=== PATIENT | male | born 1960 | race Caucasian/White ===

== ENCOUNTER 2024-06-16 18:06 | Observation (INO) | payer OTHER, MEDICARE, SELFPAY ==
[2024-06-16 18:09] VITALS: BP 147/82; PULSE 94; RESP 15; O2SAT 95
[2024-06-16 18:13] VITALS: BP 147/82; PULSE 94; RESP 15; O2SAT 95
[2024-06-16 18:46] LABS: Abs Immature Grans 0.03 10^3/uL (0.0-0.06); Absolute Basophil Count 0.05 10^3/uL (0.0-0.2); Absolute Monocyte Count 1.15 10^3/uL (0.1-0.8); Absolute Neutrophil Count 7.85 10^3/uL (1.2-6.7); Basophils % 0.4 %; Eosinophils % 4.4 %; HCT 44.1 % (40.0-50.0); HGB 14.9 g/dL (13.5-17.5); Immature Grans % 0.3 %; Lymphocytes % 15.8 %; MCHC 33.8 % (32.0-36.0); MCV 86 fL (80-95); MPV 8.8 fL (8.0-11.0); Monocytes % 10.1 %; Platelet Count 295 10^3/uL (130-400); RBC 5.14 10^6/uL (4.36-5.78); RDW 12.7 % (11.8-14.1); RDW-SD 39.8 fL; WBC 11.38 10^3/uL (4.4-10.8)
[2024-06-16 18:47] LABS: Bilirubin Negative (Negative); Blood Negative (Negative); Clarity Clear (Clear); Glucose Negative (Negative); Ketones Negative (Negative); Leukocyte Esterase Negative (Negative); Nitrite Negative (Negative); pH 6.5 (5-8)
[2024-06-16 18:57] VITALS: BP 141/76; PULSE 79; RESP 16; TEMP 37.2; O2SAT 96
[2024-06-16 18:58] LABS: ALT 34 U/L (16-63); AST 22 U/L (15-37); Albumin 3.6 g/dL (3.4-5.0); Alkaline Phosphatase 108 U/L (46-116); Anion Gap 9.5 mmol/L (3-11); BUN 16 mg/dL (7-18); Bilirubin, Total 1.28 mg/dL (0.2-1.0); CO2 26.5 mmol/L (21.0-32.0); CREATININE 1.2 mg/dL (0.70-1.30); Chloride 103 mmol/L (98-107); Estimated GFR 67.95 (mL/min/1.73m2); Glucose 99 mg/dL (74-106); Lipase 26 U/L (16-77); Potassium 3.9 mmol/L (3.5-5.1); Sodium 139 mmol/L (136-145); Total Protein 7.7 g/dL (6.4-8.2)
[2024-06-16] MEDS: ACETAMINOPHEN 1,000 MG/100 ML BAG 400 MG IVPB (19:02)
[2024-06-16 19:03] LABS: Calcium 9.4 mg/dL (8.5-10.1)
--- NOTE | 2024-06-16 19:15 | RT.EKG_ITS ---
APPROVED REPORT Exam: Resting ECG Reason for Exam: epigastric pain Patient Location: E HR:79 bpm ECG Measurements Heart Rate 79 AXIS DC 155 P 34 QRSd 90 QRS -15 QT 349 T 45 QTc 401 Conclusion Sinus rhythm, rate 79 No interval abnormalities No STEMI
--- NOTE | 2024-06-16 19:22 | W.PM.HP.N ---
Date of service: 06/16/24 Time of Service: 19:22 Assessment and Plan Assessment and plan (1) Acute cholecystitis: Status: Acute Assessment and plan: Erik and I reviewed the natural history of gallstones, and acute cholecystitis. Although he only has a mild white blood cell count and low-grade temperature, he is quite tender over the gallbladder, and the CT scan is also very concerning. There is a significant amount of gallbladder wall thickening and inflammation in the pericholecystic fat. I explained to Erik that I think it is very reasonable to attempt a laparoscopic cholecystectomy, however given the timing of his symptoms, and the appearance of the gallbladder on the CT scan, there is a higher than average chance that with this will require open cholecystectomy if any of the anatomy is significantly distorted by the inflammation. Reviewed the nature of the operation, and the risks and the benefits, and what to expect in terms of the recovery. I think Erik has a very good understanding of all of this, and he is able to provide informed consent. He like to move forward with cholecystectomy as soon as possible. History of Present Illness History of Present Illness Chief Complaint: abdominal pain Narrative: Erik is 63 years old. He noticed the acute onset of right-sided back pain on Friday. At first, he thought this may be a kidney stone, which she has experienced in the past. Pain increased in intensity through Friday, and migrated towards his right upper quadrant. Called his primary care physician, who ordered a CT scan. PET scan demonstrated gallbladder wall thickening and pericholecystic fluid consistent with acute cholecystitis. Primary care physician referred him to the emergency department. He came to [facility] where he was found of a leukocytosis, and mild elevation of his total bilirubin. He has a white blood cell count around 11,000. Past medical history significant chronic lower back pain which has been treated with a spinal stimulator. Has had a favorable response to that. He is also had nephrolithiasis as mentioned above. He takes omeprazole for gastroesophageal reflux disease. Review of Systems Constitutional Constitutional: Denies fever(s) and Reports poor appetite Eyes Eyes: Reports system reviewed and no additional complaints, except as documented ENT Ears, Nose, Mouth, and Throat: Reports system reviewed and no additional complaints, except as documented Cardiovascular Cardiovascular: Reports as per HPI and Denies dyspnea Respiratory Respiratory: Denies chest congestion, Denies cough and Denies dyspnea Gastrointestinal Gastrointestinal: Reports abdominal pain and Reports nausea Genitourinary Genitourinary: Reports system reviewed and no additional complaints, except as documented Musculoskeletal Musculoskeletal: Reports back pain Hematologic/Lymphatic Hematologic/Lymphatic: Denies easy bleeding and Denies easy bruising PFSH All Active Problems (Updated 06/16/24 @ 20:43 by ANDRE Harkins) Cholelithiasis (Acute) Acute cholecystitis (Acute) Social History Smoking risk assessment performed?: No Meds Allergies and Home Medications Allergies Allergy/AdvReac Type Severity Reaction Status Date / Time Penicillins Allergy Mild Other (See Verified 06/16/24 18:15 Comment) Home Medications ?Medication ?Instructions ?Recorded ?Confirmed ?Type fluticasone 100 mcg-salmeterol 50 1 inh inhalation DAILY 06/16/24 06/16/24 History mcg/dose blistr powdr for inhalation (Advair Diskus) gabapentin 800 mg tablet 800 mg PO 4XD 06/16/24 06/16/24 History omeprazole magnesium 20 mg 20 mg PO DAILY 06/16/24 06/16/24 History tablet,delayed release (Prilosec OTC) Exam Const General: cooperative, comfortable and no acute distress Nutritional Appearance: overweight Orientation: alert, awake and oriented x3 HENMT Head: normal to inspection Eyes General: appearance normal, both eyes and all related structures Neck Neck: normal visual inspection, full ROM and no lymphadenopathy Resp Effort & Inspection: normal respiratory effort and able to speak in complete sentences Auscultation: clear to auscultation bilaterally Cardio Jugular venous pressure: no JVD Rate: regular rate Rhythm: regular rhythm Heart Sounds: S1 normal and S2 normal GI Palpation: soft, guarding in the RUQ, no hernias and tender in the RUQ Auscultation: hypoactive bowel sounds Skin General skin exam: no rashes or lesions noted Neuro General: patient alert, patient awake and patient oriented x3 Extrem General: no cyanosis and no edema Psych Appearance: grossly normal Results Labs 06/16/24 18:36 06/16/24 18:36 Labs: Laboratory Results - last 24 hr 06/16/24 06/16/24 18:21 18:36 WBC 11.38 H RBC 5.14 Hgb 14.9 Hct 44.1 MCV 86 MCH 29.0 MCHC 33.8 RDW 12.7 Plt Count 295 MPV 8.8 Immature Gran % 0.3 Neutrophils % 69.0 Lymphocytes % 15.8 Monocytes % 10.1 Eosinophils % 4.4 Basophils % 0.4 Nucleated RBC % 0.0 Absolute Neutrophils 7.85 H Absolute Lymphocytes 1.80 Absolute Monocytes 1.15 H Absolute Eosinophils 0.50 Absolute Basophils 0.05 Sodium 139 Potassium 3.9 Chloride 103 Carbon Dioxide 26.5 Anion Gap 9.5 BUN 16 Creatinine 1.2 Est GFR (CKD-EPI 2020) 67.95 Glucose 99 Calcium 9.4 Total Bilirubin 1.28 H AST 22 ALT 34 Alkaline Phosphatase 108 Total Protein 7.7 Albumin 3.6 Lipase 26 Urine Color Yellow Urine Clarity Clear Urine pH 6.5 Ur Specific [place] 1.010 Urine Protein Negative Urine Ketones Negative Urine Blood Negative Urine Nitrite Negative Urine Bilirubin Negative Urine Urobilinogen 1.0 H Ur Leukocyte Esterase Negative Urine Glucose Negative Last Vital Signs Temp 99.0 F 06/16/24 18:57 Pulse 79 06/16/24 18:57 Resp 16 06/16/24 18:57 BP 141/76 H 06/16/24 18:57 Pulse Ox 96 06/16/24 18:57 Time Spent Time spent with Patient: 55-74 minutes Time was spent: preparing to see the patient(eg.review tests), obtaining and/or reviewing separately otained hiistory, indepentently interpreting results, counseling the patient and care coordination
[2024-06-16 19:34] VITALS: BP 151/78; PULSE 76; RESP 16; TEMP 36.9; O2SAT 95
--- NOTE | 2024-06-16 20:26 | W.ED.GENAD ---
Discharge Plan Disposition Patient Disposition: Admit to [facility] Condition: Serious Discharge Details Clinical Impression: Acute cholecystitis, Cholelithiasis Primary Care Provider: Unknown,Unknown ED Provider: Paulina Brooks Home Meds and New Rx's Prescriptions: No Action gabapentin 800 mg tablet 800 mg PO 4XD fluticasone propion-salmeterol [Advair Diskus] 100-50 mcg/dose blister with device 1 inh inhalation DAILY omeprazole magnesium [Prilosec OTC] 20 mg tablet,delayed release (DR/EC) 20 mg PO DAILY HPI General Date/Time Provider Initiated Documentation: 06/16/24 18:07. HPI Narrative: This 63-year-old male with history of asthma and neuropathy presents with report of acute cholecystitis from his primary care's office. He had outpatient CT abdomen and pelvis and diagnostic labs performed and they were concerning for acute cholecystitis. As patient has had persistent right upper quadrant pain for the past 3 days he presents for assessment. He had his imaging and blood work performed at [facility]. Denies any fever or chills. Has had some intermittent nausea and vomiting. Denies any diarrhea. Denies any history of alcohol or tobacco use. Related Data Home Medications ?Medication ?Instructions ?Recorded ?Confirmed fluticasone 100 mcg-salmeterol 50 1 inh inhalation DAILY 06/16/24 06/16/24 mcg/dose blistr powdr for inhalation (Advair Diskus) gabapentin 800 mg tablet 800 mg PO 4XD 06/16/24 06/16/24 omeprazole magnesium 20 mg 20 mg PO DAILY 06/16/24 06/16/24 tablet,delayed release (Prilosec OTC) Allergies Allergy/AdvReac Type Severity Reaction Status Date / Time Penicillins Allergy Mild Other (See Verified 06/16/24 18:15 Comment) General Stated Complaint: Abd Prob NOBLE: 3 Exam Narrative Exam Narrative: Alert and oriented 63-year-old gentleman in no acute distress, guarding to right upper quadrant, no rebound tenderness, lungs clear to auscultation, cardiac rate rhythm regular, no abdominal bruit or pulsatile mass, no CVA tenderness, distal pulses intact, alert and oriented x 4 Course Vital Signs Vital signs: Vital Signs Pulse 94 H 06/16/24 18:09 Respiratory Rate 15 06/16/24 18:09 Blood Pressure 147/82 H 06/16/24 18:09 Pulse Oximetry 95 06/16/24 18:09 Temperature 36.9 C 06/16/24 19:34 Temperature Source Oral 06/16/24 19:34 Pulse 76 06/16/24 19:34 Respiratory Rate 16 06/16/24 19:34 Respiratory Effort Normal 06/16/24 19:34 Respiratory Depth Normal 06/16/24 19:34 Respiratory Pattern Normal 06/16/24 19:34 Blood Pressure 151/78 H 06/16/24 19:34 Blood Pressure Mean 102 06/16/24 19:34 Blood Pressure Position Supine 06/16/24 19:34 Pulse Oximetry 95 06/16/24 19:34 Oxygen Delivery Method Room Air 06/16/24 19:34 Oxygen Flow Rate 0 06/16/24 19:34 Pain Level 2 06/16/24 19:34 Lab/Test Results Lab/Test Results: Laboratory Tests Range/Units 06/16/24 06/16/24 18:21 18:36 WBC (4.4-10.8) 10^3/uL 11.38 H RBC (4.36-5.78) 10^6/uL 5.14 Hgb (13.5-17.5) g/dL 14.9 Hct (40.0-50.0) % 44.1 MCV (80-95) fL 86 MCH (27.0-33.0) pg 29.0 MCHC (32.0-36.0) % 33.8 RDW (11.8-14.1) % 12.7 Plt Count (130-400) 10^3/uL 295 MPV (8.0-11.0) fL 8.8 Immature Gran % % 0.3 Neutrophils % % 69.0 Lymphocytes % % 15.8 Monocytes % % 10.1 Eosinophils % % 4.4 Basophils % % 0.4 Nucleated RBC % (0.0-0.3) % 0.0 Absolute Neutrophils (1.2-6.7) 10^3/uL 7.85 H Absolute Lymphocytes (1.2-3.4) 10^3/uL 1.80 Absolute Monocytes (0.1-0.8) 10^3/uL 1.15 H Absolute Eosinophils (0.0-0.7) 10^3/uL 0.50 Absolute Basophils (0.0-0.2) 10^3/uL 0.05 Sodium (136-145) mmol/L 139 Potassium (3.5-5.1) mmol/L 3.9 Chloride (98-107) mmol/L 103 Carbon Dioxide (21.0-32.0) mmol/L 26.5 Anion Gap (3-11) mmol/L 9.5 BUN (7-18) mg/dL 16 Creatinine (0.70-1.30) mg/dL 1.2 Est GFR (CKD-EPI 2020) (mL/min/1.73m2) 67.95 Glucose (74-106) mg/dL 99 Calcium (8.5-10.1) mg/dL 9.4 Total Bilirubin (0.2-1.0) mg/dL 1.28 H AST (15-37) U/L 22 ALT (16-63) U/L 34 Alkaline Phosphatase (46-116) U/L 108 Total Protein (6.4-8.2) g/dL 7.7 Albumin (3.4-5.0) g/dL 3.6 Lipase (16-77) U/L 26 Urine Color (Yellow) Yellow Urine Clarity (Clear) Clear Urine pH (5-8) 6.5 Ur Specific [place] (1.005-1.025) 1.010 Urine Protein (Neg-Trace) mg/dL Negative Urine Ketones (Negative) mg/dL Negative Urine Blood (Negative) Negative Urine Nitrite (Negative) Negative Urine Bilirubin (Negative) Negative Urine Urobilinogen (Up to 0.2) mg/dL 1.0 H Ur Leukocyte Esterase (Negative) Negative Urine Glucose (Negative) mg/dL Negative Medical Decision Making 62-year-old male presenting with right upper quadrant pain and report of acute cholecystitis based on the CT performed at [facility] earlier today. Patient's exam is consistent with acute cholecystitis, no significant leukocytosis 11,000, LFTs and lipase within normal limits. Approximately 10 minutes of time was spent logging into [facility] to review CT imaging and diagnostic lab imaging. nontoxic in appearance. Case discussed with Dr. Natarajan after reviewing CT report from [facility]. Patient given Zosyn and will be admitted to our facility. Dr. Natarajan after evaluating the patient has decided to take him to the operating room tonight. Patient remains with stable vitals and assessment throughout his stay in the emergency department. Will transition care to Dr. Natarajan at this time 20:00. Quality:SDOH Health Related Social Needs: No Data to Display PFSH All Active Problems (Updated 06/16/24 @ 20:43 by ANDRE Harkins) Cholelithiasis (Acute) Acute cholecystitis (Acute) Social History Smoking risk assessment performed?: No
[2024-06-16 20:40] VITALS: BP 146/87; PULSE 77; RESP 14; TEMP 37; O2SAT 95
--- NOTE | 2024-06-16 21:06 | ANES.PREOP_ITS ---
General Info Date of Service Date Performed: 06/16/24 Height: 6 ft 1 in Weight: 123.831 kg Body Mass Index (BMI): 36.0 Meds Allergies and Home Medications Allergies Allergy/AdvReac Type Severity Reaction Status Date / Time Penicillins Allergy Mild Other (See Verified 06/16/24 18:15 Comment) Home Medication ?Medication ?Instructions ?Recorded fluticasone 100 mcg-salmeterol 50 1 inh inhalation DAILY 06/16/24 mcg/dose blistr powdr for inhalation (Advair Diskus) gabapentin 800 mg tablet 800 mg PO 4XD 06/16/24 omeprazole magnesium 20 mg 20 mg PO DAILY 06/16/24 tablet,delayed release (Prilosec OTC) Current Visit Medications: Current Medications Generic Name Dose Route Start Last Admin Trade Name Freq PRN Reason Stop Dose Admin Indocyanine Green 5 mg 06/16/24 21:00 Indocyanine Green 25 Mg Vial IVP DIRECTED [facility] Active Problems Active Problems: Problem Status Onset Code Cholelithiasis Acute K80.20 Acute cholecystitis Acute K81.0 Vital Signs and Lab Results Vital Signs Most Recent Vital Signs in EMR: Most Recent Vital Signs Temp Pulse Resp BP Pulse Ox 37.0 C 77 14 146/87 H 95 06/16/24 20:40 06/16/24 20:40 06/16/24 20:40 06/16/24 20:40 06/16/24 20:40 Lab Results 06/16/24 18:36 06/16/24 18:36 Blood Type / Crossmatch: 2 No Data to Display Complete Blood Count: 2 White Blood Count 11.38 10^3/uL (4.4-10.8) H 06/16/24 18:36 Red Blood Count 5.14 10^6/uL (4.36-5.78) 06/16/24 18:36 Hemoglobin 14.9 g/dL (13.5-17.5) 06/16/24 18:36 Hematocrit 44.1 % (40.0-50.0) 06/16/24 18:36 Platelet Count 295 10^3/uL (130-400) 06/16/24 18:36 Complete Metabolic Panel: 2 Sodium 139 mmol/L (136-145) 06/16/24 18:36 Potassium 3.9 mmol/L (3.5-5.1) 06/16/24 18:36 Chloride 103 mmol/L (98-107) 06/16/24 18:36 Carbon Dioxide 26.5 mmol/L (21.0-32.0) 06/16/24 18:36 BUN 16 mg/dL (7-18) 06/16/24 18:36 Creatinine 1.2 mg/dL (0.70-1.30) 06/16/24 18:36 Est GFR (CKD-EPI 2020) 67.95 (mL/min/1.73m2) 06/16/24 18:36 Calcium 9.4 mg/dL (8.5-10.1) 06/16/24 18:36 Albumin 3.6 g/dL (3.4-5.0) 06/16/24 18:36 Glucose 99 mg/dL (74-106) 06/16/24 18:36 Liver Function Panel: 2 Alanine Aminotransferase (ALT/SGPT) 34 U/L (16-63) 06/16/24 18: 36 Aspartate Amino Transf (AST/SGOT) 22 U/L (15-37) 06/16/24 18:36 Coagulation Panel: 2 No Data to Display Cardiac Panel: 2 No Data to Display Arterial Blood Gas: 2 No Data to Display Venous Blood Gas: 2 No Data to Display Pancreas Panel: 2 Lipase 26 U/L (16-77) 06/16/24 18:36 Thyroid Panel: 2 No Data to Display Infectious Disease: 2 No Data to Display Blood Cultures: 2 No Data to Display Toxicology Panel: 2 No Data to Display Anesthesia Assessment and Plan Anesthesia History Personal History: No History of Anesthesia Complications Family History: No Family History of Anesthesia Complications Exercise Tolerance Exercise Tolerance: Metabolic Equivalents>4 Cardiac & Pulmonary Exam Cardiac Exam: Normal S1/S2 Heart Sounds Pulmonary Exam: Clear Bilateral Breath Sounds Implantable Cardiac Device Does patient have a Pacemaker or an ICD?: No Airway Exam Known Difficult Airway: No Mallampati Class: 3 Mouth Opening: Normal (> 3cm) Thyromental Distance: Greater than 3 cm Neck Range of Motion: Full ROM Neck Circumference: Thick Teeth Condition: Normal Dentition ASA Classification ASA Score: ASA 2 Emergency Case?: Yes NPO Status NPO Status: NPO Small Non-Fatty Meal >6 hours (hasn't been keeping food down, had a small bite of a sandwich, but threw it up. ) Anesthesia Plan Resuscitation Status: Full Code Anesthesia Technique: General Anesthesia Airway Planned: Endotracheal Tube Monitors Used: Standard Monitors Preoperative Comments:: 63 yo male for lap kishan due to acute cholecystitis. In the ER currently has received acetaminophen. Sig PMHx: asthma (Advair. rare rescue use), GERD (omeprazole), neuropathy (gabapentin). previous UPPP, spinal cord stimulator placed ~t4 level, and multiple spinal surgeries in the past. Discussed GA with rescue regional anesthesia.
[2024-06-16 21:10] VITALS: BMI 36.0
[2024-06-16] MEDS: Lactated Ringers 500 ML 30 ML IV (21:52)
[2024-06-16] MEDS: ceFAZolin 2 GM/50 ML BAG 100 GM (21:52)
[2024-06-16] MEDS: Indocyanine green 25 MG VIAL (21:53)
[2024-06-16] MEDS: Bupivacaine 0.25% Pres-Free W/EPI 30 ML VIAL (22:29)
--- NOTE | 2024-06-16 23:00 | GB_PTH ---
PATIENT: Erik Garcia JR LOC: U#:[id number] AGE/SX: 63/M ROOM: [facility] RE06/17/[address]: Jero Natarajan MD : [id number] BED: A DIS: 06/18/2024 SPEC #: [id number] RECD: 06/17/24 12:50 STATUS: ALIX REQ #: [id number] ELLA: 06/16/24 23:[address]: Jero Natarajan DEPT: Surgical Specimen RECD BY: Paulina Thornton ENTERED: 06/17/24 12:50 SP TYPE: GB OTHR DR: No Local Tissues: 1 - GALLBLADDER Procedures: GROSS AND MICRO LEVEL 3 Comments: [id number]
[2024-06-16] MEDS: Bupivacaine LIPOSOME/PF 133 MG/10 ML VIAL IJ (23:32)
--- NOTE | 2024-06-16 23:48 | W.PM.OP ---
Date of service: 06/16/24 Time of Service: 23:48 Operative Note Operative Note DATE OF PROCEDURE: 06/16/24 PRE-OP DIAGNOSIS: Acute cholecystitis POST-OP DIAGNOSIS: same PROCEDURE: Open cholecystectomy SURGEON: Jero Natarajan LINUX SECURITY ADMINISTRATOR: Russ Galeano ANESTHESIA TYPE: Local By Surgeon and General LMA/ETT Refer to Anesthesia Record ESTIMATED BLOOD LOSS: 150 PATHOLOGY: other (Gallbladder) COMPLICATIONS: None Patient was transported to: PACU Patient's condition: stable Indications: Erik is a 63-year-old male with approximately 3 days of increasing abdominal pain. He underwent a CT scan that demonstrated acute cholecystitis. Findings: Acute gangrenous cholecystitis Procedure Description: Erik was brought into the operating room, and assisted over onto the OR table. Care was taken to make sure that he was padded and supported appropriately. General endotracheal anesthesia was induced. Next, I prepped and draped the anterior abdominal wall. I anesthetized the area around the umbilicus, made a longitudinal incision along the top side of the umbilical fold. I dissected down to the fascia which was grasped with Rabia clamps, and divided sharply in between. The peritoneal cavity was entered under direct vision. A 12 mm port was affixed to the fascia. The peritoneum was then insufflated. A 5 mm 30 degree scope was inserted. Patient was placed in some reverse Trendelenburg positioning with the left side down. A 5 mm port was placed in the right anterior abdominal wall, followed by another 5 mm port in the right midabdomen, and finally another 5 mm port in the mid epigastric site. With the assistance of indocyanine green, we began exposing the gallbladder dome. Gallbladder was quite dilated, and impossible to grasp. A needle was used to aspirate and drain dark green bile from the gallbladder. Once the dome was decompressed, with little more pliable and graspable. It was retracted up towards the head. This exposed some of the gallbladder body. There was some adhesions of the greater omentum up onto the gallbladder wall which were dissected free. The gallbladder wall was extremely thick, and the true planes of the gallbladder were really quite challenging to identify. Furthermore, there was a massive stone towards the gallbladder infundibulum which made grasping and retraction of this area almost impossible. In light of the challenges identifying the anatomy, and the severe inflammation of the gallbladder, at this point I felt the safest option was to transition over to an open cholecystectomy with a dome down approach. Therefore, the port in the right mid abdomen was removed, as was the umbilical port. 2 remaining ports in the mid epigastrium and right lateral sidewall were connected with a single subcostal incision. Once this was complete, a Bookwalter self-retaining retractor system was used for adequate exposure. The dome of the gallbladder was grasped with Josefa clamp, and using electrocautery, I began the attachment from the gallbladder fossa. Once I began dissecting the plane of the posterior gallbladder wall into the fossa, it became clear that there were multiple areas of patchy necrosis of the gallbladder wall. Staying posterior and lateral on the gallbladder, I dissected down past the gallbladder body towards the infundibulum. I was able to milk the stone in the cystic neck up into the gallbladder proper which gave me better exposure of the cystic neck as it tapers towards the cystic duct. In order to stay well away from the common bile duct, a large right angle clamp was then placed across the cystic neck encompassing the area of the cystic artery as well. The gallbladder was then divided from the cystic neck with Metzenbaum scissors. There was quite a bit of inflammation and thickened tissue around this area, and I suspect the true cystic artery was mostly obliterated and the inflammation. The cystic stump was suture-ligated with 2-0 silk suture. The surgical site was irrigated. There was minimal bleeding from the gallbladder fossa which was easily controlled with cautery. At that point, everything appeared hemostatic. Retraction sponges were removed, the surgical bed was irrigated until the effluent ran clear. Given the fact that there was quite a bit of patchy necrosis along the posterior wall the gallbladder and the adjacent gallbladder fossa and liver bed, I felt leaving a drain in place would be a safe maneuver. Therefore, I delivered a [address] drain through the remaining mid abdominal 5 mm port site. It was placed up in the gallbladder fossa adjacent to the cystic stump. Next, I created a small omental pedicle flap off of the adjacent transverse colon. This was mobilized up into the gallbladder fossa as well. The surgical drain was cut to length and affixed to the skin. I then closed the posterior fascia along the length of the incision using 2-0 PDS suture. The muscular layers were irrigated. Length of the incision was anesthetized using local anesthetic mixed with Exparel. Next, the anterior fascial sheath was reapproximated with 2-0 PDS suture as well. Again, the field was irrigated, and the deep soft tissue was reapproximated with interrupted 2-0 Vicryl stitches. The deep skin layer was also reapproximated with 2-0 Vicryl's. 4-0 Monocryl suture was then used to close the entire length of the incision. I then turned my attention to the remaining umbilical port site. This was closed with interrupted 0 Vicryl stitches at the fascial layer, and a 4-0 Monocryl suture for the skin. A ann negative pressure wound therapy device was then used to dress the subcostal incision, and a bandage was placed over the umbilical port site. The patient was then awoken from the anesthetic, extubated, and transferred to the recovery unit.
[2024-06-17] VITALS (15 sets, daily range): BP systolic 99–150; BP diastolic 59–102; PULSE 56–67; RESP 11–18; TEMP 36.2–36.6; O2SAT 92–100
[2024-06-17] MEDS: fentaNYL 100 MCG/2 ML VIAL IVP ×2 (00:28→00:39)
[2024-06-17] MEDS: HYDROmorphone 1 MG/ML SYR IVP ×3 (01:52→07:40)
[2024-06-17] MEDS: Lactated Ringers 1,000 ML 75 ML IV ×2 (02:07→15:41)
[2024-06-17] MEDS: Ketorolac 30 MG/ML VIAL IVP ×2 (03:12→09:27)
[2024-06-17] MEDS: PIPERACILLIN/TAZO 3.375 GM in Normal Saline 50 ML IVPB ×4 (03:40→21:40)
[2024-06-17] MEDS: ACETAMINOPHEN 1,000 MG/100 ML BAG 400 MG IVPB ×3 (03:52→15:39)
[2024-06-17] MEDS: MORPHine 4 MG/ML SYR IVP (05:21)
[2024-06-17 06:30] LABS: ALT 59 U/L (16-63); AST 48 U/L (15-37); Albumin 3.5 g/dL (3.4-5.0); Alkaline Phosphatase 118 U/L (46-116); Anion Gap 10.2 mmol/L (3-11); BUN 19 mg/dL (7-18); Bilirubin, Direct 0.9 mg/dL (0.0-0.2); Bilirubin, Total 1.74 mg/dL (0.2-1.0); CO2 25.8 mmol/L (21.0-32.0); CREATININE 1.4 mg/dL (0.70-1.30); Calcium 9.3 mg/dL (8.5-10.1); Chloride 101 mmol/L (98-107); Estimated GFR 56.48 (mL/min/1.73m2); Glucose 178 mg/dL (74-106); Potassium 4.6 mmol/L (3.5-5.1); Sodium 137 mmol/L (136-145); Total Protein 7.7 g/dL (6.4-8.2)
--- NOTE | 2024-06-17 07:09 | W.ANESPOSTOP ---
Postoperative Evaluation Date, Time and Location Date Performed: 06/17/24 Time Performed: 00:30 Patient Location: PACU Vital Signs Most Recent Imported Vital Signs: Most Recent Vital Signs Temp Pulse Resp BP Pulse Ox 36.2 C L 59 L 14 138/74 93 06/17/24 03:38 06/17/24 03:38 06/17/24 03:38 06/17/24 03:38 06/17/24 03:38 Pain Score Most Recent Pain Score: Most Recent Pain Score Pain Level 5 06/17/24 01:05 Assessment Mental Status: Awake (Alert & Oriented to Patient Baseline) Airway and Respiratory Function: Patent airway with normal (patient baseline) respiratory exam Cardiovascular Function: Hemodynamically Stable Hydration Status: Adequately Hydrated Nausea & Vomiting: No Nausea or Vomiting Pain: Pain is tolerable per patient Peripheral Nerve Block: Patient did not receive a nerve block
[2024-06-17] MEDS: Ondansetron 4 MG/2 ML VIAL IVP ×2 (07:38→11:47)
[2024-06-17] MEDS: Normal Saline Flush 10 ML SYR IVP ×4 (07:41→21:41)
[2024-06-17] MEDS: Omeprazole 20 MG CAPCR PO (07:41)
--- NOTE | 2024-06-17 07:50 | W.PM.PROGNOT ---
Date of Service Date of service: 06/17/24 Time of Service: 07:51 Assessment and Plan Assessment and plan (1) Acute cholecystitis: Status: Acute Assessment and plan: POD 0 S/p open cholecystectomy with LEYLA drain placement. Currently working towards improved pain control. Nauseous without vomiting. Encouraged activity OOB Start to take in PO soft, low fat diet LEYLA drain with serosanginous drainage STEVE dressing in place. Will continue to monitor for pain control and will slowly advance diet as tolerated. 1630 PT has been tolerated clears/ADAT He is up and walking +BM pain is controlled LEYLA- sang and no bile abx- zosyn DVT- lovnox labs in am Subjective Subjective Interval history since last seen: Patient reports that over night he has had difficulty with pain control. Coughing and movement increases his level of discomfort. He states he continues to have some nausea and is waiting for some Zofran. Exam Const General: cooperative, healthy appearing and comfortable Orientation: alert and oriented x3 Resp Effort & Inspection: normal respiratory effort, no audible wheezes and no cough GI Inspection: normal to inspection Palpation: soft, no guarding and tender in the RLQ and in the RUQ Other: LEYLA drain in place with serosanginous drainage STEVE dressing over the incison. Objective Last Vital Signs Temp 36.3 C L 06/17/24 07:19 Pulse 64 06/17/24 07:19 Resp 18 06/17/24 07:19 BP 150/86 H 06/17/24 07:19 Pulse Ox 96 06/17/24 07:19 Laboratory Results - last 24 hr 06/16/24 06/16/24 06/17/24 18:21 18:36 05:40 WBC 11.38 H RBC 5.14 Hgb 14.9 Hct 44.1 MCV 86 MCH 29.0 MCHC 33.8 RDW 12.7 Plt Count 295 MPV 8.8 Immature Gran % 0.3 Neutrophils % 69.0 Band Neutrophils % Lymphocytes % 15.8 Atypical Lymphs % Monocytes % 10.1 Eosinophils % 4.4 Basophils % 0.4 Metamyelocytes % Myelocytes % Promyelocytes % Other Cells % Nucleated RBC % 0.0 Absolute Neutrophils 7.85 H Absolute Lymphocytes 1.80 Absolute Monocytes 1.15 H Absolute Eosinophils 0.50 Absolute Basophils 0.05 RBC Morphology Polychromasia Hypochromasia Poikilocytosis Basophilic Stippling Anisocytosis Microcytosis Macrocytosis Spherocytes Tear Drop Cells Ovalocytes Stomatocytes [place] Bodies [place] Cells/Echinocytes Acanthocytes (Spur) Schistocytes Sodium 139 137 Potassium 3.9 4.6 Chloride 103 101 Carbon Dioxide 26.5 25.8 Anion Gap 9.5 10.2 BUN 16 19 H Creatinine 1.2 1.4 H Est GFR (CKD-EPI 2020) 67.95 56.48 Glucose 99 178 H Calcium 9.4 9.3 Total Bilirubin 1.28 H 1.74 H Conjugated Bilirubin 0.9 H AST 22 48 H ALT 34 59 Alkaline Phosphatase 108 118 H Total Protein 7.7 7.7 Albumin 3.6 3.5 Lipase 26 Urine Color Yellow Urine Clarity Clear Urine pH 6.5 Ur Specific [place] 1.010 Urine Protein Negative Urine Ketones Negative Urine Blood Negative Urine Nitrite Negative Urine Bilirubin Negative Urine Urobilinogen 1.0 H Ur Leukocyte Esterase Negative Urine Glucose Negative 06/17/24 Unknown WBC Cancelled RBC Cancelled Hgb Cancelled Hct Cancelled MCV Cancelled MCH Cancelled MCHC Cancelled RDW Cancelled Plt Count Cancelled MPV Cancelled Immature Gran % Cancelled Neutrophils % Cancelled Band Neutrophils % Cancelled Lymphocytes % Cancelled Atypical Lymphs % Cancelled Monocytes % Cancelled Eosinophils % Cancelled Basophils % Cancelled Metamyelocytes % Cancelled Myelocytes % Cancelled Promyelocytes % Cancelled Other Cells % Cancelled Nucleated RBC % Cancelled Absolute Neutrophils Cancelled Absolute Lymphocytes Cancelled Absolute Monocytes Cancelled Absolute Eosinophils Cancelled Absolute Basophils Cancelled RBC Morphology Cancelled Polychromasia Cancelled Hypochromasia Cancelled Poikilocytosis Cancelled Basophilic Stippling Cancelled Anisocytosis Cancelled Microcytosis Cancelled Macrocytosis Cancelled Spherocytes Cancelled Tear Drop Cells Cancelled Ovalocytes Cancelled Stomatocytes Cancelled [place] Bodies Cancelled [place] Cells/Echinocytes Cancelled Acanthocytes (Spur) Cancelled Schistocytes Cancelled Sodium Cancelled Potassium Cancelled Chloride Cancelled Carbon Dioxide Cancelled Anion Gap Cancelled BUN Cancelled Creatinine Cancelled Est GFR (CKD-EPI 2020) Cancelled Glucose Cancelled Calcium Cancelled Total Bilirubin Cancelled Conjugated Bilirubin Cancelled AST Cancelled ALT Cancelled Alkaline Phosphatase Cancelled Total Protein Cancelled Albumin Cancelled Lipase Urine Color Urine Clarity Urine pH Ur Specific [place] Urine Protein Urine Ketones Urine Blood Urine Nitrite Urine Bilirubin Urine Urobilinogen Ur Leukocyte Esterase Urine Glucose Time Spent with Patient Time Spent with Patient: <25 minutes Time was spent: preparing to see the patient(eg.review tests) and obtaining and/or reviewing separately moraima gonzalez
[2024-06-17] MEDS: Budesonide/Formoterol 80/4.5 6.9 GM 60 PUFF INH IH ×2 (08:22→21:43)
--- NOTE | 2024-06-17 08:54 | INITIAL_ITS ---
Date of service: 06/17/24 Time of Service: 08:54 Care Management Initial Assmt Initial Assessment Reason for Hospitalization: acute cholecystitis Functional Status/Living Situation Patient Presentation: Erik was sitting up in bed visiting with his when CM met with him. He was agreeable to conversation and seemed to be in good spirits. Erik had an open cholecystectomy last night. He stated that his GB was very enlarged with a massive stone. He is feeling better today but still has discomfort. Erik and his live in a single family home in [place], [place]. They have 2 sons who live locally and a daughter in [facility].Erik works for [employer] in [place], [place]. He is independent at baseline and does not receive any community services. Erik and his explained that they drove to [facility] rather than to [facility] or [facility] because they prefer this hospital. Town of Residence: [place], [place] Resides with: Spouse ( Jeff) Significant Other/Family: Out of area (sons live in [place]) Employment Status: Employed Instrumental Activities of Daily Living (ADLs): Independent Medications Medication Management: No Issues/Barriers identified Physical Functioning/Mobility Assistive Device: none Advance Directives Advance Directives: Do you have an Advance Directive: N 06/16/24 19:15 AD On File at [facility]: N 06/16/24 19:15 Date Asked 06/16/24 06/16/24 19:15 AD Date Reviewed COLST On File at [facility] COLST Date Scanned Comment: given 2 copies of [place] AD forms Code Status Resuscitation Status Full Code Portal Pt does not currently have a portal and education provided: No Insurance Coverage/Financial Issues Insurance: Medicare Care Team Visit Care Team Role Provider Type Local No Primary Care Provider NON-[facility] STAFF PHYSICIAN ANDRE Harkins Emergency Provider [facility]PRENT[facility] Jero Natarajan MD Admit Provider [facility] STAFF PHYSICIAN Attending Provider Discharge Potential Discharge Needs: Surgical F/U Appt Anticipated Barriers to Discharge: None Identified Patient/Family Education Needs: Review discharge instructions, discuss Ask Me Three Transportation: Private vehicle Plan: Anticipate Erik will be discharged home with no new services when medically stable. He will follow up with his surgeon and plan of care and transport with family. CM will follow and support discharge needs. PFSH All Active Problems (Updated 06/16/24 @ 20:43 by ANDRE Harkins) Cholelithiasis (Acute) Acute cholecystitis (Acute) Social History Smoking risk assessment performed?: No Housing: house SDOH(Care Management) Screening Will the Patient Participate in the Screening?: Yes Do you worry about having a steady place to live?: no In the past 12 months, have you had to go without electric, gas, oil or water in your home?: no Have you or anyone in your house had to go without enough food to eat?: no Has lack of transportation kept you from medical appointments or from doing things needed for daily living?: no Has anyone in your support network made you feel unsafe for any reason?: no
[2024-06-17] MEDS: Normal Saline 10 ML VIAL IJ (09:27)
[2024-06-17] MEDS: Simethicone 80 MG CHEW PO (09:32)
[2024-06-17] MEDS: Enoxaparin 40 MG/0.4 ML SYR SC (10:52)
--- NOTE | 2024-06-17 13:25 | CHAPLAIN ---
Erik was in bed when I visited. I introduced myself, explained my role and offered support. Erik was pleasant and engaged in a short conversation. He is in touch with family. He's from [place], [place]. I will continue to visit.
[2024-06-17] MEDS: Acetaminophen 500 MG TAB 1000 MG PO (21:39)
[2024-06-18] MEDS: Acetaminophen 500 MG TAB 1000 MG PO ×3 (02:46→14:38)
[2024-06-18] MEDS: PIPERACILLIN/TAZO 3.375 GM in Normal Saline 50 ML IVPB (04:17)
[2024-06-18 06:56] LABS: ALT 42 U/L (16-63); AST 27 U/L (15-37); Albumin 2.9 g/dL (3.4-5.0); Alkaline Phosphatase 94 U/L (46-116); Anion Gap 7.4 mmol/L (3-11); BUN 22 mg/dL (7-18); Bilirubin, Total 1.15 mg/dL (0.2-1.0); CO2 29.6 mmol/L (21.0-32.0); CREATININE 1.5 mg/dL (0.70-1.30); Calcium 8.7 mg/dL (8.5-10.1); Chloride 105 mmol/L (98-107); Estimated GFR 51.99 (mL/min/1.73m2); Glucose 108 mg/dL (74-106); Potassium 4.1 mmol/L (3.5-5.1); Sodium 142 mmol/L (136-145); Total Protein 7.2 g/dL (6.4-8.2)
--- NOTE | 2024-06-18 07:18 | W.PM.PROGNOT ---
Date of Service Date of service: 06/18/24 Time of Service: 07:18 Assessment and Plan Assessment and plan (1) S/P cholecystectomy: Status: Acute Assessment and plan: Erik seems to be doing much better this morning. His bilirubin is trending downward. His creatinine is still bit elevated, but he is drinking without any difficulty. Will switch him over to oral medications this morning, and I think we can probably shift IV fluids off for now. Will reassess this afternoon, and hopefully discharge this evening. Subjective Subjective Interval history since last seen: Erik is feeling much better this morning. He is only used Tylenol for pain control since yesterday. His nausea is resolved, and appetite is increased quite a bit this morning. Has not had a bowel movement yet Exam GI Other: His abdomen is soft, nondistended. He is mild incisional tenderness. LEYLA drain is serosanguineous. Objective Last Vital Signs Temp 97.7 F 06/17/24 20:44 Pulse 58 L 06/17/24 20:44 Resp 16 06/17/24 20:44 BP 125/69 06/17/24 20:44 Pulse Ox 96 06/17/24 20:44 Laboratory Results - last 24 hr 06/18/24 06:07 Sodium 142 Potassium 4.1 Chloride 105 Carbon Dioxide 29.6 Anion Gap 7.4 BUN 22 H Creatinine 1.5 H Est GFR (CKD-EPI 2020) 51.99 Glucose 108 H Calcium 8.7 Total Bilirubin 1.15 H AST 27 ALT 42 Alkaline Phosphatase 94 Total Protein 7.2 Albumin 2.9 L Time Spent with Patient Time Spent with Patient: 35-49 minutes Time was spent: preparing to see the patient(eg.review tests), indepentently interpreting results, counseling the patient and care coordination
[2024-06-18 08:09] VITALS: BP 129/79; PULSE 64; RESP 15; TEMP 37.2; O2SAT 96
[2024-06-18] MEDS: Budesonide/Formoterol 80/4.5 6.9 GM 60 PUFF INH IH (08:09)
[2024-06-18] MEDS: Omeprazole 20 MG CAPCR PO (08:13)
[2024-06-18] MEDS: Gabapentin 800 MG TAB PO ×2 (08:13→14:38)
--- NOTE | 2024-06-18 09:51 | CMDISCH_ITS ---
Date of service: 06/18/24 Time of Service: 09:51 LACE Index Scoring Tool Questions: Length of Stay (in days): 1 Was the patient admitted via the E.D.?: Yes E.D. Visits: 1 Answers: Total Score: 5 Risk of Readmission: Low Risk Care Management Discharge Plan Reason for Hospitalization: Cholecystitis Discharge Plan: Erik will be discharged home with no new services. He will follow up with his surgeon and plan of care and transport with family. SRINATH comple lloyd Advanced Directives with Erik and provided him with copies. They will be scanned into his chart and sent to the [place] AD Registry. Patient/Family Education Needs: Review discharge instructions, limitations, wound care, follow up plan, discuss Ask Me Three SDIL Health Related Social Needs: No Data to Display
[2024-06-18] MEDS: Enoxaparin 40 MG/0.4 ML SYR SC (10:27)
--- NOTE | 2024-06-18 14:20 | DSE_ITS ---
Date of service: 06/18/24 Time of Service: 14:20 DS: Diagnosis Discharge Diagnosis (1) S/P cholecystectomy: Status: Acute Asessment and Plan: Outpatient follow-up next week Discharge Plan Disposition Patient Disposition: Home Condition: Good Discharge Details Reason For Visit: gall bladder? Admit Date/Time: 06/17/24 00:15 Admit Provider: Jero Natarajan Attending Provider: Jero Natarajan Primary Care Provider: Kiarra,Local Hospital Course Hospital Course: Erik is 63 years old. He came to the emergency department with abdominal pain, and a CT scan suggesting acute cholecystitis. He had a leukocytosis and significant right upper quadrant tenderness. He underwent open cholecystectomy. Postoperative course was uncomplicated, and he was discharged home Home Meds and New Rx's Prescriptions: New tramadol 50 mg tablet 50 mg PO Q8H PRNQty: 12 0RF Rx Instructions: Take 1 tablet by mouth up to every 8 hours if needed for severe pain. Continued gabapentin 800 mg tablet 800 mg PO 4XD fluticasone propion-salmeterol [Advair Diskus] 100-50 mcg/dose blister with device 1 inh inhalation DAILY omeprazole magnesium [Prilosec OTC] 20 mg tablet,delayed release (DR/EC) 20 mg PO DAILY Discharge Instructions Instructions: Low Cholesterol, Saturated Fat, and Trans Fat Diet , Low-fat diet Additional Instructions: Erik, it was a pleasure meeting you in the hospital, and I hope you make a quick recovery from this operation. As some sure you already get the sense, you had abdominal pain that was being caused by stones in your gallbladder. You under went a surgery to remove your gallbladder known as a cholecystectomy. Although we attempted it with a camera, or laparoscopic, because of the significant amount of inflammation, we converted to an open operation to get your gallbladder out. Hopefully you will be relatively comfortable now that you are ready for discharge home. I would like you to work on increasing your activity a little more and more each day. Even if it is just walking, that is an excellent way to help stimulate recovery. The big restriction regards to heavy lifting and avoidance of vigorous activity that would increase the pressure within your abdomen. I suggest keeping her lifting accuracy expert than about a gallon of milk. And do not do any heavy raking, or exercises such as abdominal crunches or sit ups. Like we talked about before you were discharged, it is fine for you to take a shower. I would suggest waiting until Friday morning, then disconnecting the suction dressing like we talked about. You will tap the orange button to shut the pump off. The light should stop blinking green. Then untwist the connection tubing, and feel free to shower. Use warm soapy water over the incisions just below the large vacuum dressing, and the 1 at your bellybutton. Rinse everything clean, and assess the incisions once you get out of the shower. If everything is dry, and comfortable, you do not necessarily need Band-Aids on those 2 smaller incisions. If they are irritated by your clothing, or at all uncomfortable, then please feel free to put Band-Aids on them. Reattach the suction tubing to the little pump, and tapped the orange button once again. It should blink green and orange for just a minute or 2 as the vacuum reestablishes itself, then transition to steady blinking green. If at any point you notice any issues with a little vacuum pump, please let the office know I have taken the liberty of scheduling a follow-up appointment in my office on the at 9 AM. You will actually be seeing one of the physicians assistants, her name is Migdalia and she is outstanding. If I can sneak over between cases I will certainly come over to check. The most important thing is that we assess the incision and get the vacuum dressing off at that point. If you need anything over the weekend, please feel free to call the hospital direct line, then have them page the surgeon on-call, they will put you in touch with me. Hopefully you will be back to your normal self before you know it. Referrals: Ana Rasheed PA [PHYSICIANS SENIOR RISK ANALYST] - (June 25 at 9 AM) Activity:: No heavy lifting Equipment/Supplies:: No Equipment Needed Diet:: As Tolerated DS: Summary Time Spent with Patient providing and/or coordinating discharge services: Greater than 30 minutes Status at Discharge Functional status at discharge: independent ambulation Overall status at discharge: patient is back to baseline Mental Status: mental status grossly normal Speech and Movement: speech and movement normal Mood: congruent mood Affect: normal affect Quality:SDOH Health Related Social Needs: No Data to Display Exam GI Other: Abdomen is soft and nondistended. Bandages are dry. Surgical drain is removed Psych Mental Status: mental status grossly normal Speech and Movement: speech and movement normal Mood: congruent mood Affect: normal affect DS: Data Vitals/I&O Vitals and I&O: Vital Signs Temperature 99.0 F 06/18/24 08:09 Temperature Source Temporal Artery Scan 06/18/24 08:09 Pulse 64 06/18/24 08:09 Pulse Rhythm Regular 06/17/24 01:05 Respiratory Rate 15 06/18/24 08:09 Respiratory Effort Normal 06/17/24 01:05 Respiratory Depth Shallow 06/17/24 01:05 Respiratory Pattern Normal 06/17/24 01:05 Blood Pressure 129/79 06/18/24 08:09 Blood Pressure Mean 106 06/16/24 20:40 Blood Pressure Position Supine 06/16/24 20:40 Pulse Oximetry 96 06/18/24 08:09 Respiratory End-tidal CO2 43 06/17/24 00:41 Oxygen Delivery Method Room Air 06/18/24 09:41 Oxygen Flow Rate 0 06/18/24 09:41 Pain Level 1 06/18/24 09:37 Comment Assigned RN notified of elevated BP. 06/17/24 07:19 Intake & Output 06/17/24 06/18/24 06/18/24 23:59 11:59 23:59 Intake Total 1320 / 2070 1550 / 1550 Output Total 985 / 1715 1452 / 1452 Balance 335 / 355 98 / 98 Intake: IV 1300 / 2050 1050 / 1050 Oral 500 / 500 Injectate 20 / 20 Right Mid Anterior Abdomen 20 / 20 Output: Drainage 35 / 165 27 / 27 Right Mid Anterior Abdomen 35 / 165 27 / 27 Urine 950 / 950 1425 / 1425 Other: Urine Color Yellow Yellow Urine Appearance Clear Clear Urine Odor None None Stool Size Small Stool Characteristics Hard Data Completed and Pending Labs on day of discharge: Labs from last 24 hours 06/18/24 06:07 Sodium 142 Potassium 4.1 Chloride 105 Carbon Dioxide 29.6 Anion Gap 7.4 BUN 22 H Creatinine 1.5 H Est GFR (CKD-EPI 2020) 51.99 Glucose 108 H Calcium 8.7 Total Bilirubin 1.15 H AST 27 ALT 42 Alkaline Phosphatase 94 Total Protein 7.2 Albumin 2.9 L PFSH All Active Problems (Updated 06/18/24 @ 07:19 by Jero Natarajan MD) S/P cholecystectomy (Acute) Medical History (Updated 06/18/24 @ 07:19 by Jero Natarajan MD) Cholelithiasis Acute cholecystitis Social History Smoking risk assessment performed?: No Housing: house Time Spent with Patient Time Spent with Patient: <45 minutes Time was spent: preparing to see the patient(eg.review tests), ordering medications,tests, procedures, referring, communicating with other health healthcare science specialist, indepentently interpreting results and counseling the patient
== END 2024-06-18 15:21 | disposition home or self-care (01) ==
LOC: ER 20:43 → DSU 21:42 → MS 06-17 01:34
PROVIDERS: Surgery; Admitting Provider Surgery; Emergency Provider Physician Assistant; Visit Provider Surgery
PROC: 0FT44ZZ Resection of Gallbladder, Percutaneous Endoscopic Approach (ICD-10-PCS; CPT 47562; principal; 2024-06-16 21:20)
DX: K80.00 Calculus of gallbladder with acute cholecystitis without obstruction (principal); K82.A1 Gangrene of gallbladder in cholecystitis; G89.29 Other chronic pain; M54.50 Low back pain, unspecified; K21.9 Gastro-esophageal reflux disease without esophagitis; Z96.82 Presence of neurostimulator
CPT/HCPCS: 47600; 25609; 36415; 80048; 80053; 80076; 83690; 93005; 94640; 96365; 96366; 96372; 96375; 96376; 99223; 99285; J1650; 81003; 85025; 88304; 93010; 94664; C9290; G0378; J0131; J0690; J1100; J1171; J1885; J2270; J2405; J2543; J2704; J3010

== ENCOUNTER → 2024-06-25 08:51 | Outpatient (BNVA) | payer MEDICARE, SELFPAY | PROVIDERS: Visit Provider Physical Therapy Assistant | DX: Z48.817 Encounter for surgical aftercare following surgery on the skin and subcutaneous tissue (principal) ==

== ENCOUNTER 2024-06-30 12:26 | Outpatient (CLI) | payer OTHER, MEDICARE, SELFPAY ==
--- NOTE | 2024-06-30 | DI.CT_ITS ---
Exam(s) CT ABDOMEN PELVIS W EXAM: CT ABDOMEN PELVIS W CLINICAL HISTORY: R10.9 Abd pain, post operative. TECHNIQUE: Imaging Protocol: Axial computed tomography images with coronal and sagittal reformatted images were created and reviewed CONTRAST MATERIAL: Intravenous: Omnipaque 350 Contrast volume:100 ml Oral: yes COMPARISON: CT CT Abdomen and Pelvis w/ Contrast from 06/16/2024 FINDINGS: ABDOMEN and PELVIS: Lung Bases: No acute findings. Atelectasis at the lung bases. Liver: Normal density. No suspicious mass. Gallbladder and biliary tract: Status post cholecystectomy. No fluid or inflammation in the gallblad zaida fossa.. No biliary dilation. Pancreas: Normal density. No abnormal calcifications or inflammatory process. No evidence of mass. Spleen: Normal. Kidneys: Normal size, contour and axis. There are few bilateral nonobstructing renal calculi. Bilat eral simple renal cysts again noted.. No obstructive uropathy. No suspicious masses seen. Adrenal glands: No masses seen. Vasculature: Abdominal aorta non-dilated. Soft tissues: New fluid collection in the right lateral to the anterior abdominal wall musculature me asuring 3.0 x 7.5 by 8 cm. This corresponds to laparoscopic trocar site. Right posterior spinal sti mulator device. Bladder: No gross wall thickening. No calculi.No focal mass. Bowel: No obstruction. No bowel wall thickening. Appendix normal. Peritoneal cavity: No ascites. No focal collection. No mesenteric inflammatory response. Bones: Hardware in upper pelvis. Postsurgical and degenerative changes of the lumbar spine. Reproductive organs: Unremarkable. Lymph nodes: No pathologically enlarged lymph nodes. IMPRESSION:: Fluid collection noted at the right upper quadrant abdominal wall trocar site. Superim posed infection is not entirely excluded. Clinical correlation recommended. No acute intra-abdominal abnormality is seen. There is no fluid or inflammation in the gallbladder f marcos. No biliary dilatation. RADIATION DOSE DELIVERED: Total DLP DATA REPOSITORY: All CT scans at this facility are submitted to the National Radiology Data Registry (NRDR) Dose Index Registry (DIR) with the [employer] ([employer]). RADIATION OPTIMIZATION: All CT scans at this facility use at least one of these dose optimization te chniques: automated exposure control; mA and/or kV adjustment per patient size (includes targeted exa ms where dose is matched to clinical indication); or iterative reconstruction.
[2024-06-30] MEDS: Breeza Beverage 473 ML BTL PO ×3 (12:40→13:49)
[2024-06-30] MEDS: Omnipaque 350 MG/ML 50 ML BTL PO ×2 (12:41→13:49)
[2024-06-30] MEDS: Omnipaque 350 MG/ML 100 ML BTL IJ (14:13)
[2024-06-30] MEDS: Normal Saline - Diluent 50 ML VIAL IJ (14:14)
== END 2024-06-30 12:46 ==
PROVIDERS: Visit Provider Student in an Organized Health Care Education/Training Program
DX: R19.09 Other intra-abdominal and pelvic swelling, mass and lump (principal)
CPT/HCPCS: 74177; J3490; Q9967

== ENCOUNTER → 2024-07-01 14:48 | Outpatient (BNVA) | payer MEDICARE, OTHER, SELFPAY | PROVIDERS: Visit Provider Physical Therapy Assistant | DX: Z48.815 Encounter for surgical aftercare following surgery on the digestive system (principal) ==

== ENCOUNTER → 2024-07-06 07:44 | Outpatient (BNVA) | payer MEDICARE, OTHER, SELFPAY | PROVIDERS: PCP Student in an Organized Health Care Education/Training Program; Referring Provider Student in an Organized Health Care Education/Training Program; Visit Provider Surgery | DX: Z48.815 Encounter for surgical aftercare following surgery on the digestive system (principal); Z90.49 Acquired absence of other specified parts of digestive tract ==

== ENCOUNTER 2024-11-21 07:41 | Emergency (ER) | payer MEDICARE, OTHER, SELFPAY ==
[2024-11-21 07:44] VITALS: BP 145/71; PULSE 76; RESP 18; TEMP 36.6; O2SAT 97
--- NOTE | 2024-11-21 07:45 | DI.RAD_ITS ---
Exam(s) XR KNEE RT 3V AP,LAT,MALCOLM EXAM: XR KNEE RT 3V AP,LAT,MALCOLM CLINICAL HISTORY: pain s/p twisting injury. TECHNIQUE: 2D digital imaging was performed. Three views. COMPARISON: No exams were available for comparison FINDINGS: BONES: No acute fracture is present. No bony destructive lesion is seen. JOINTS: severe narrowing of the medial femoral tibial joint space. Periarticular spurring throughou t. No joint effusion is seen. SOFT TISSUE: Normal. IMPRESSION: Advanced degenerative changes. No acute abnormality. DATA REPOSITORY: RADIATION DOSE DELIVERED:
--- NOTE | 2024-11-21 07:57 | ED.GENADUL_ITS ---
Discharge Plan Disposition Patient Disposition: Home Condition: Stable Discharge Details Clinical Impression: Right knee sprain Primary Care Provider: [facility] ED Provider: Yair Franklin Home Meds and New Rx's Prescriptions: Continued gabapentin 800 mg tablet 800 mg PO 4XD fluticasone propion-salmeterol [Advair Diskus] 100-50 mcg/dose blister with device 1 inh inhalation DAILY omeprazole magnesium [Prilosec OTC] 20 mg tablet,delayed release (DR/EC) 20 mg PO DAILY Discharge Instructions Additional Instructions: Your x-ray does not show any concerning findings at this time. You can take 600 mg of ibuprofen and 1000 mg of acetaminophen every 6 hours as needed. If you are not improving within a week follow-up with your primary care provider. If you feel more ill or have severe worsening pain or new symptoms such as high fevers return to the emergency department for reevaluation HPI General Date/Time Provider Initiated Documentation: 11/21/24 07:44 . Limitations to Documentation: no limitations . Information obtained by: patient . History of Present Illness 64 year old M presents to the emergency department with the chief complaint of right knee pain, described as moderate, Quality is described as aching, and is localized to the right and lower extremity. Patient started experiencing this day(s) (1) and it has been constant. Rest improves symptom(s), Movement worsens symptoms . Patient notes no other symptoms.. Patient did receive the following treatments prior to arrival, NSAID Related Data Home Medications ?Medication ?Instructions ?Recorded ?Confirmed fluticasone 100 mcg-salmeterol 50 1 inh inhalation DAILY 06/16/24 11/21/24 mcg/dose blistr powdr for inhalation (Advair Diskus) gabapentin 800 mg tablet 800 mg PO 4XD 06/16/24 11/21/24 omeprazole magnesium 20 mg 20 mg PO DAILY 06/16/24 11/21/24 tablet,delayed release (Prilosec OTC) Allergies Allergy/AdvReac Type Severity Reaction Status Date / Time Penicillins Allergy Mild Other (See Verified 11/21/24 07:46 Comment) General Stated Complaint: Orthopedic NOBLE: 4 Review of Systems All systems reviewed & are unremarkable except as noted in HPI and below Constitutional Constitutional: Denies chills, Denies fever(s) and Denies weakness Cardiovascular Cardiovascular: Denies chest pain and Denies dyspnea Respiratory Respiratory: Denies dyspnea Gastrointestinal Gastrointestinal: Denies abdominal pain and Denies vomiting Neurologic Neurologic: Denies weakness Exam Const General: no acute distress Orientation: alert HENMT Head: normal to inspection Ears: external ears normal General nose exam: external nose normal Mouth: moist mucous membranes Eyes General: appearance normal, both eyes and all related structures Neck Neck: normal visual inspection Resp Effort & Inspection: normal respiratory effort and able to speak in complete sentences Cardio Rate: regular rate Neuro General: patient alert and patient oriented x3 Extrem General: full ROM and capillary refill normal Psych Mental Status: mental status grossly normal Course Vital Signs Vital signs: Vital Signs Temperature 36.6 C 11/21/24 07:44 Pulse 76 11/21/24 07:44 Respiratory Rate 18 11/21/24 07:44 Blood Pressure 145/71 H 11/21/24 07:44 Pulse Oximetry 97 11/21/24 07:44 Temperature 36.6 C 11/21/24 07:44 Temperature Source Tympanic 11/21/24 07:44 Pulse 76 11/21/24 07:44 Respiratory Rate 18 11/21/24 07:44 Blood Pressure 145/71 H 11/21/24 07:44 Blood Pressure Position Sitting 11/21/24 07:44 Pulse Oximetry 97 11/21/24 07:44 Oxygen Delivery Method Room Air 11/21/24 07:44 Oxygen Flow Rate 0 11/21/24 07:44 Medical Decision Making 64-year-old male comes in with right knee pain. He says he was lifting approximately 20 pound object yesterday and twisted his knee while doing so. He denies falling or other injuries. He has had lateral knee pain since so came in for evaluation. He denies any fevers, chills, chest pain, difficulty breathing. He appears well in no distress on exam. His knee is not swollen compared to the left. He has full range of motion of the knee. He has tenderness over the lateral portion of the knee without visible or palpable deformities. He has no swelling of the rest of his leg or calf tenderness, intact distal sensation and pulses. I suspect sprain, will obtain x-rays to exclude fracture close unlikely given lack of falls. X-ray my read shows no acute findings, turnaround time from virtual radiology is over an hour and he does not want a wait for official read which I feel is reasonable, I will call him if there is anything of concern. I suspect sprain, he states he has a cane to help keep weight off his knee, I advised to follow-up with his PCP if not improving within 1 to 2 weeks. Return precautions given Differential Diagnosis Differential Diagnosis: Sprain, strain, meniscus injury Quality:SDOH Health Related Social Needs: No Data to Display PFSH All Active Problems (Updated 06/19/24 @ 00:01 by MARY CARMEN HUA) Right knee sprain (Acute) S/P cholecystectomy (Acute) Medical History (Updated 11/21/24 @ 08:34 by Yair Franklin MD) Cholelithiasis Acute cholecystitis Social History Smoking/Tobacco Use Status: Never Smoking risk assessment performed?: Yes Alcohol Intake: former Drug use: Never Substance use type: does not use Housing: house Do you feel safe at home: Yes Do you feel safe in your relationship?: Yes
[2024-11-21] MEDS: Acetaminophen 500 MG TAB 1000 MG PO (08:00)
--- NOTE | 2024-11-21 08:35 | DI.VRAD_ITS ---
PROCEDURE INFORMATION: Exam: XR Right Knee Exam date and time: 11/21/2024 8:09 AM Age: 64 years old Clinical indication: Injury or trauma; Other: Pain S/P twisting injury TECHNIQUE: Imaging protocol: Radiologic exam of the right knee. Views: 3 views. COMPARISON: No relevant prior studies available. FINDINGS: Bones/joints: Moderate Tricompartmental joint space narrowing and osteophyte formation consistent with degenerative changes. Joint space narrowing most evident in the medial compartment . There is no evidence of acute fracture.There is no evidence of malalignment or dislocation. Soft tissues: Normal. IMPRESSION: 1. Moderate Tricompartmental joint space narrowing and osteophyte formation consistent with degenerative changes. Joint space narrowing most evident in the medial compartment . 2. There is no evidence of acute fracture.There is no evidence of malalignment or dislocation. Dictated and Authenticated by: Katy Can MD. Orderin Noemi Mazariegos MD
[2024-11-21 08:47] VITALS: BP 133/77; PULSE 58; RESP 18; O2SAT 95
--- NOTE | 2024-12-06 10:17 | NUR.NOTE ---
Accessed Pt chart to print discharge summary for Surg[facility]
--- NOTE | 2024-12-06 10:22 | NUR.NOTE ---
Accessed Pt chart to print discharge summary for Surg[facility]
--- NOTE | 2024-12-08 13:08 | NUR.NOTE ---
Accessed patient chart to print provider note to be faxed to [facility] for billing purposes. Nursing Note:
== END 2024-11-21 08:48 | disposition home or self-care (01) ==
PROVIDERS: Emergency Provider Emergency Medicine; PCP Student in an Organized Health Care Education/Training Program
DX: S83.91XA Sprain of unspecified site of right knee, initial encounter (principal); X50.1XXA Overexertion from prolonged static or awkward postures, initial encounter; Y93.89 Activity, other specified
CPT/HCPCS: 73562; 99283

== ENCOUNTER → 2024-12-27 09:53 | Outpatient (BNVA) | payer MEDICARE, OTHER, SELFPAY | PROVIDERS: PCP Student in an Organized Health Care Education/Training Program; Referring Provider Student in an Organized Health Care Education/Training Program; Visit Provider Student in an Organized Health Care Education/Training Program | DX: Z12.11 Encounter for screening for malignant neoplasm of colon (principal) | CPT/HCPCS: S0285 ==

== ENCOUNTER 2025-01-10 07:31 | Day surgery (SDC) | payer OTHER, SELFPAY ==
--- NOTE | 2025-01-08 18:49 | W.PM.DSUDISC ---
Date of service: 01/10/25 Discharge Plan Disposition Patient Disposition: Home Condition: Good Discharge Details Reason For Visit: Screening colonoscopy Attending Provider: Jero Natarajan Primary Care Provider: [facility] Home Meds and New Rx's Prescriptions: Continued gabapentin 800 mg tablet 800 mg PO 4XD fluticasone propion-salmeterol [Advair Diskus] 100-50 mcg/dose blister with device 1 inh inhalation DAILY omeprazole magnesium [Prilosec OTC] 20 mg tablet,delayed release (DR/EC) 20 mg PO DAILY Discontinued polyethylene glycol 3350 17 gram/dose powder 238 g PO ONCE Qty: 238 0RF Rx Instructions: take per colonoscopy instructions bisacodyl [Dulcolax (bisacodyl)] 5 mg tablet,delayed release (DR/EC) 5 mg PO ONCE Qty: 4 0RF Rx Instructions: take per colonoscopy instructions No Action acetaminophen 500 mg capsule 500 mg PO Q6H PRN Discharge Instructions Additional Instructions: Erik was good seeing you today, and I hope you feel well after the procedure. Things went very smoothly. Your prep was outstanding and I could see everything fine. I did not see any signs of tumors, polyps, or anything else worrisome. Based on your family history, I recommend a 5-year interval for your screening colonoscopies. If you need anything or have any questions at all, do not hesitate to call 1. If tolerated, consume a soft, low fiber diet for 1-2 days. [address] Do not drive, drink alcohol, operate machinery, make critical decisions, or do activities that require coordination or balance for 24 hours. 3. Because air was put into your colon during the procedure, expelling air from your rectum (passing gas or farting) is normal. 4. You may not have a bowel movement for 1-3 days because of the colonoscopy prep. This is normal. 5. Go directly to the emergency room if you notice any of the following: Develop chills (warm to touch), or if you have a thermometer and your temperature is above 101 Difficulty breathing or difficultly swallowing Persistent vomiting Severe abdominal pain, other than gas cramps Severe chest pain Black, tarry stools Any bleeding ? exceeding one tablespoon 6. Call your physician if the site where your intravenous was started becomes red, swollen, painful, and warm to touch. 7. Your physician has reviewed your pre-procedure medications. Please continue to take those medications as previously ordered. You will be given specific information/education regarding any changes to your medications before leaving. Activity:: Activity as Tolerated Diet:: As Tolerated Discharge Orders Discharge Orders: Discharge Order (Routine); Ordered 01/08/25 Ordered By: Jero Natarajan DS: Diagnosis Discharge Diagnosis (1) Encounter for screening colonoscopy: Status: Acute Asessment and Plan: Negative screening colonoscopy; based on family history, recommend a 5-year interval for the next colonoscopy
--- NOTE | 2025-01-08 18:50 | COLE_ITS ---
Date of service: 01/10/25 Time of Service: 09:56 Colonoscopy Report Date of procedure: 01/10/25 Pre-op diagnosis general: screening colonoscopy Post-op diagnosis procedure note: other (Negative screening colonoscopy) Procedure: colonoscopy Surgeon: Jero Natarajan Anesthesia Type: General:No Airway Estimated blood loss (mL): 0 Pathology: none sent Complications: None Disposition: same day Indications: Erik is a 64 year old man with a family history of colon cancer. He needs a screening colonscopy Prep: Miralax/Dulcolax Procedure Start Time: 09:15 Procedure End Time: 09:41 Retraction Time: 6 Findings: Negative screening colonoscopy Procedure Description: After the induction of anesthesia, and with general in left lateral decubitus position, I began by performing an external anorectal exam.? Perineum and skin were normal, as was the anal verge.? There was no evidence of external hemorrhoids.? Next, I performed a digital rectal exam.? I did not appreciate any abnormal findings.? Next, I advanced a colonoscope into the rectal vault.? I performed retroflexion.? This appeared normal.? Using irrigation, I then advanced the colonoscope beyond the rectal folds and into the sigmoid colon before advancing towards the cecum.? The quality of the prep was excellent.? The scope was noted to be in the cecum by identification of the ileocecal valve and appendiceal orifice.? I then began withdrawing the colonoscope using repeated irrigation as necessary for full evaluation of the colonic mucosa. ?Once the scope was withdrawn to the level of the rectum, great care was taken to examine portions of the rectal folds.? Finally, the scope was withdrawn and the patient was brought to the same-day surgery recovery unit as the anesthetic wore off. ?I did not see any signs of tumors, polyps, or anything worrisome. The findings and instructions were shared with the patient prior to discharge. [place] Bowel Prep [place] Bowel Prep Right Colon: 3 Left Colon: 3 Transverse Colon: 3 Total Score: 9
[2025-01-10 08:02] VITALS: BP 131/98; PULSE 72; RESP 16; TEMP 36.3; O2SAT 96
[2025-01-10] MEDS: Lactated Ringers 1,000 ML 80 ML IV (08:26)
--- NOTE | 2025-01-10 08:49 | ANES.PREOP_ITS ---
General Info Date of Service Date Performed: 01/10/25 Height: 6 ft 1 in Weight: 120.7 kg Body Mass Index (BMI): 35.1 Surgical Procedure: Operation Date: 01/10/25 09:05 Proposed Procedure Side Surgeon p Colonoscopy Jero Natarajan MD Meds Allergies and Home Medications Allergies Allergy/AdvReac Type Severity Reaction Status Date / Time indomethacin (From Indocin) Allergy Severe Anaphylaxis Verified 01/10/25 07:56 Penicillins Allergy Mild Other (See Verified 01/10/25 07:56 Comment) Home Medication ?Medication ?Instructions ?Recorded fluticasone 100 mcg-salmeterol 50 1 inh inhalation DAILY 06/16/24 mcg/dose blistr powdr for inhalation (Advair Diskus) gabapentin 800 mg tablet 800 mg PO 4XD 06/16/24 omeprazole magnesium 20 mg 20 mg PO DAILY 06/16/24 tablet,delayed release (Prilosec OTC) acetaminophen 500 mg capsule 500 mg PO Q6H PRN 01/10/25 Current Visit Medications: Current Medications Generic Name Dose Route Start Last Admin Trade Name Freq PRN Reason Stop Dose Admin Ringer's Solution 1,000 mls @ 80 mls/hr 01/10/25 06:00 01/10/25 08:26 IV 01/10/25 23:59 80 mls/hr INFUSION LARRY Administration IV Miscellaneous Supplies 1 each 01/10/25 06:00 Iv Access IV 01/10/25 23:59 DIRECTED LARRY Ondansetron HCl 4 mg 01/08/25 18:51 Ondansetron 4 Mg/2 Ml Vial IVP 02/07/25 18:50 Q4H PRN PRN Nausea / Vomiting Sodium Chloride 0 ml 01/10/25 06:00 Normal Saline Flush 10 Ml Syr IV 01/10/25 23:59 PRN PRN Sodium Chloride 0 ml 01/10/25 06:00 Normal Saline 10 Ml Vial IJ 01/10/25 23:59 DIRECTED PRN Sterile Water 0 ml 01/10/25 06:00 Water,Injection,Sterile 10 Ml Vial IJ 01/10/25 23:59 DIRECTED PRN PFSH Active Problems Active Problems: Problem Status Onset Code Encounter for screening colonoscopy Acute Z12.11 S/P cholecystectomy Acute Z90.49 Medical History Medical History GERD (gastroesophageal reflux disease) Cholelithiasis Acute cholecystitis Surgical History Surgical History S/P insertion of spinal cord stimulator Hx of spinal surgery rods and screws in situ History of colonoscopy with polypectomy [facility] History of cholecystectomy (~07/2024) open Dr Natarajan Tobacco Smoking/Tobacco Use Status: Never Alcohol Alcohol Intake: former Substance Use Substance use: Never Substance use type: does not use Vital Signs and Lab Results Vital Signs Most Recent Vital Signs in EMR: Most Recent Vital Signs Temp Pulse Resp BP Pulse Ox 36.3 C L 72 16 131/98 H 96 01/10/25 08:02 01/10/25 08:02 01/10/25 08:02 01/10/25 08:02 01/10/25 08:02 Lab Results Blood Type / Crossmatch: No Data to Display Complete Blood Count: No Data to Display Complete Metabolic Panel: No Data to Display Liver Function Panel: No Data to Display Coagulation Panel: No Data to Display Cardiac Panel: No Data to Display Arterial Blood Gas: No Data to Display Venous Blood Gas: No Data to Display Pancreas Panel: No Data to Display Thyroid Panel: No Data to Display Infectious Disease: No Data to Display Blood Cultures: No Data to Display Toxicology Panel: No Data to Display Imaging and Studies Imaging and Studies Study information below may be from another EMR and interpreted by another provider. Please see original notes in EMR for more complete details. EKG Summary: 06/16/24: Exam: Resting ECG Reason for Exam: epigastric pain Patient Location: E HR:79 bpm ECG Measurements Heart Rate 79 AXIS NH 155 P 34 QRSd 90 QRS -15 QT 349 T45 QTc 401 Conclusion Sinus rhythm, rate 79 No interval abnormalities No STEMI I have reviewed and I agree with the emergency room physician's ECG interpretation. Anesthesia Assessment and Plan Anesthesia History Personal History: No History of Anesthesia Complications and Other Family History: No Family History of Anesthesia Complications Exercise Tolerance Exercise Tolerance: Metabolic Equivalents>4 Pertinent Negatives Pertinent Negatives: No Major Cardiovascular Symptoms or Complaints and No Major Pulmonary Symptoms or Complaints Cardiac & Pulmonary Exam Cardiac Exam: Normal S1/S2 Heart Sounds Pulmonary Exam: Clear Bilateral Breath Sounds Implantable Cardiac Device Does patient have a Pacemaker or an ICD?: No Airway Exam Known Difficult Airway: No Mallampati Class: 3 Mouth Opening: Normal (> 3cm) Thyromental Distance: Greater than 3 cm Neck Range of Motion: Full ROM Neck Circumference: Thick Teeth Condition: Normal Dentition ASA Classification ASA Score: ASA 2 Emergency Case?: No NPO Status NPO Status: NPO Clears >2 hours, Solids >8 hours Anesthesia Plan Resuscitation Status: Full Code Anesthesia Technique: General Anesthesia Airway Planned: Natural Airway Monitors Used: Standard Monitors Preoperative Comments:: GERD well controlled, no active symptoms
[2025-01-10 08:57] VITALS: BMI 35.1
[2025-01-10 09:48] VITALS: BP 113/72; PULSE 60; RESP 16; TEMP 36.4; O2SAT 97
--- NOTE | 2025-01-10 10:04 | W.ANESPOSTOP ---
Postoperative Evaluation Date, Time and Location Date Performed: 01/10/25 Time Performed: 10:04 Patient Location: Day Surgery Unit Vital Signs Most Recent Imported Vital Signs: Most Recent Vital Signs Temp Pulse Resp BP Pulse Ox 36.4 C L 60 16 113/72 97 01/10/25 09:48 01/10/25 09:48 01/10/25 09:48 01/10/25 09:48 01/10/25 09:48 Pain Score Most Recent Pain Score: Most Recent Pain Score Pain Level 0 01/10/25 09:48 Assessment Mental Status: Awake (Alert & Oriented to Patient Baseline) Airway and Respiratory Function: Patent airway with normal (patient baseline) respiratory exam Cardiovascular Function: Hemodynamically Stable Hydration Status: Adequately Hydrated Nausea & Vomiting: No Nausea or Vomiting Pain: Pt. Denies Any Pain Peripheral Nerve Block: Patient did not receive a nerve block
[2025-01-10 10:10] VITALS: BP 108/71; PULSE 59; RESP 18; TEMP 36.4; O2SAT 97
== END 2025-01-10 10:21 | disposition home or self-care (01) ==
PROVIDERS: PCP Student in an Organized Health Care Education/Training Program; Visit Provider Surgery
PROC: 0DJD8ZZ Inspection of Lower Intestinal Tract, Via Natural or Artificial Opening Endoscopic (ICD-10-PCS; CPT 45378; principal; 2025-01-10 09:00)
DX: Z12.11 Encounter for screening for malignant neoplasm of colon (principal); Z80.0 Family history of malignant neoplasm of digestive organs
CPT/HCPCS: 45378; J2003; J2704